=== PATIENT | male | born 1960 | race Caucasian/White ===

== ENCOUNTER → 2024-10-16 | Day surgery (SDC) | payer MEDICAID ==
[~2024-10-16] VITALS: Ht 177.8 cm; Wt 72.6 kg
[~2024-10-16] MED LIST: ACETAMINOPHEN 1,000MG/100ML PREMIX IV PRN; BUPIVACAINE HCL/PF 0.5% (5MG/ML) 10ML ONE; FAMOTIDINE 20MG/2ML VIAL IV ONE; FAMOTIDINE 20MG/2ML VIAL IV PRN; FENTANYL CITRATE/PF 50MCG/ML 2ML VIAL ONE; HYDRALAZINE 20MG/ML VIAL IV PRN; LABETALOL 5MG/ML 4ML INJ IV PRN; LACTATED RINGERS 1,000 ML IV SCH; MEPERIDINE HCL/PF 25MG/ML CPJ IV PRN; MIDAZOLAM HCL 2 MG/2 ML VIAL ONE; ONDANSETRON HCL 4MG/2ML INJ IV PRN; ONDANSETRON HCL 4MG/2ML INJ ONE; PROPOFOL 200MG/20ML VIAL IV ONE; ROCURONIUM BROMIDE 10MG/ML VIAL 5ML IV ONE; SKIN ADHESIVE 0.7 GM EA TOP ONE; VALS1TAB75 PO
[2024-10-16] MEDS: ACETAMINOPHEN 1000MG/100ML 100 ML IV PRN (09:17)
[2024-10-16] MEDS: BUPIVACAINE HCL 0.5% 175 ML in ON-Q PM013 DRUG DELIV DEVICE 1 EA IR ONE (09:18)
[2024-10-16] MEDS: ACETAMINOPHEN WITH CODEINE 300/30MG TABLET PO SCH (09:41)
[2024-10-16 09:48] VITALS: BP 149/98; PULSE 79; RESP 15
[2024-10-16] MEDS: HYDROMORPHONE HCL/PF 1MG/ML INJ IV PRN (09:48)
== END | disposition home or self-care (01) ==
LOC: OR 05:55
PROVIDERS: ATTEND Surgery
DX: K40.90 Unilateral inguinal hernia, without obstruction or gangrene, not specified as recurrent (principal); I10 Essential (primary) hypertension; Z79.899 Other long term (current) drug therapy; Z98.890 Other specified postprocedural states
CPT/HCPCS: 49505; 88302; J3010; J0665; J3490 ×2; J1308; J2250; J2405; J2704; J1171; C1781; J0131